=== PATIENT | male | born 1945 | race Caucasian/White ===

== ENCOUNTER 2021-02-08 14:11 | Emergency (ER) | payer MEDICARE, OTHER, SELFPAY ==
[2021-02-08 14:48] VITALS: BP 182/85; PULSE 62; RESP 15; TEMP 36.6; O2SAT 100; BMI 23.3
--- NOTE | 2021-02-08 14:54 | DI.RAD.S_ITS ---
PROCEDURE: XR FINGER LT MIN 2V INDICATIONS: deformed TECHNIQUE: AP hand, 2 views of the 5th finger(s) acquired. COMPARISON: None. FINDINGS: Bones: There is posterior ulnar dislocation at the proximal 5th interphalangeal joint. No definitive fractures. No suspicious bony lesions. Soft tissues: No suspicious soft tissue calcifications. Soft tissue swelling at the base of the 2nd finger. IMPRESSION: Posterior ulnar dislocation of the 5th finger at the proximal interphalangeal joint Dictated by: Agnieszka Fletcher M.D. on 02/08/2021 at 15:49 Approved by: Agnieszka Fletcher M.D. on 02/08/2021 at 15:52
[2021-02-08 16:39] VITALS: BP 141/85; PULSE 75; RESP 16
--- NOTE | 2021-02-08 17:01 | ED_ITS ---
HPI - Extremity Injury (Upper) General Chief Complaint: Extremity Injury, Upper Stated Complaint: LEFT PINKY FINGER FRACTURE Time Seen by Provider: 02/08/21 16:45 Source: patient Mode of arrival: Ambulatory Limitations: no limitations History of Present Illness HPI narrative: Patient complains of left pinky pain/deformity. Patient is left handed. Patient states today he was in the middle moving things in his home. He tripped over a show on the floor. Uncertain how he injured his left pinky. It is deviated laterally. He attempted to place it back in but unable to. No known numbness tingling or weakness. No skin injury to the pinky. He does have small abrasion to the right hopson but does not want to have it looked at. He is up-to-date with his tetanus shot. Review of Systems Review of Systems Narrative: GENERAL: Denies chills, fatigue, malaise, fever, sweats. MUSCULOSKELETAL: Complaints of bony pain NEUROLOGIC: Denies weakness, numbness ROS Unobtainable: All systems reviewed & are unremarkable except as noted in HPI and below Patient History Social History Smoking Status: Never smoker Smoking Status: Never smoker alcohol intake frequency: 0-2 drinks per day Substance Use Type: does not use Exam Narrative Exam Narrative: GENERAL: in no distress, not toxic not dyspneic HEAD: Normocephalic. EXTREMITIES: Examination left hand. There is deformity at 5th digit. At the PIP joint it is deviated all in the ulnar direction skin intact. Light touch intact. Limited range of motion at this joint due to deformity NEURO: AOx4. SKIN: Warm and dry PSYCH: Not anxious, is cooperative Initial Vital Signs Initial Vital Signs: Vital Signs Temperature 97.8 F 02/08/21 14:48 Pulse Rate 62 02/08/21 14:48 Respiratory Rate 15 02/08/21 14:48 Blood Pressure 182/85 H 02/08/21 14:48 Pulse Oximetry 100 02/08/21 14:48 Procedures Orthopedic Joint Reduction Joint #1: Side: left Joint Reduction Location: other (Finger) Analgesia: other (Patient does not want any anesthesia) Technique used: traction/counter-traction Post-reduction vascular: intact Post Reduction X-Ray Obtained: Yes Post Reduction X-Ray Results: reduced Splint Applied: Yes Course Course Course Narrative: No new issues during course of stay. Orders Ordered: ED Orders 02/08/21 14:54 XR finger LT min 2V Stat 02/08/21 17:01 XR finger LT min 2V Stat Reevaluation(s) Reevaluation #1: Patient feels much better after reduction of finger and placed in splint. X-rays reviewed with him he desires discharge home Time: 17:27 Vital Signs Vital signs: Vital Signs - 8 hr 02/08/21 14:48 02/08/21 16:39 Temperature 97.8 F Pulse Rate 62 75 Respiratory Rate 15 16 Blood Pressure 182/85 H 141/85 H Pulse Oximetry 100 MDM - Extremity Injury (Upper) Differential Diagnosis Differential diagnosis: Likely dislocation of finger and other Imaging Data Extremity x-ray #1: Radiologist's Impression: [address] [id number] ReportSigned Patient: Minh Block ZMR#: [id number]: 6Acct:[id number]/Sex: 75 / MDate of Service: 02/08/21Loc: EDAccession Number: [id number] Procedure: XR finger LT min 2V Ordering Provider: Rafa Hughes MD PROCEDURE: XR FINGER LT MIN 2V INDICATIONS: deformed TECHNIQUE: AP hand, 2 views of the 5th finger(s) acquired. COMPARISON: None. FINDINGS: Bones: There is posterior ulnar dislocation at the proximal 5th interphalangeal joint. No definitive fractures. No suspicious bony lesions. Soft tissues: No suspicious soft tissue calcifications. Soft tissue swelling at the base of the 2nd finger. IMPRESSION: Posterior ulnar dislocation of the 5th finger at the proximal interphalangeal joint Dictated by: Agnieszka Fletcher M.D. on 02/08/2021 at 15:49 Approved by: Agnieszka Fletcher M.D. on 02/08/2021 at 15:52 Extremity x-ray #2: Radiologist's Impression: [address] [id number] ReportSigned Patient: Minh Block ZMR#: [id number]: 6Acct:[id number]/Sex: 75 / MDate of Service: 02/08/21Loc: EDAccession Number: [id number] Procedure: XR finger LT min 2V Ordering Provider: Rafa Hughes MD PROCEDURE: XR FINGER LT MIN 2V INDICATIONS: post reduction TECHNIQUE: AP hand, 2 views of the 5th finger(s) acquired. COMPARISON: [facility], , XR FINGER LT MIN 2V, 02/08/2021, 14:55. FINDINGS: Bones: No fractures or dislocations. No suspicious bony lesions. Soft tissues: No suspicious soft tissue calcifications. IMPRESSION: Successful reduction of finger dislocation without fracture. Dictated by: Albert Oglesby M.D. on 02/08/2021 at 17:10 Approved by: Albert Oglesby M.D. on 02/08/2021 at 17:18 MDM Narrative Medical decision making narrative: Appropriate for discharge home. Neurovascular intact. Pain improved. Discharge Plan Departure Patient Disposition: Home Clinical Impression: Dislocation of finger Qualifiers: Encounter type: initial encounter Qualified Code(s): S63.259A - Unspecified dislocation of unspecified finger, initial encounter Instructions: DI for Finger Dislocation, DI for Abrasion Activity Restrictions/Additional Instructions: Return if worse if any questions concerns. Use finger splint for comfort and make appointment for Orthopedics tomorrow for recheck in 1 or 2 weeks. Referrals: Yahaira Farrell MD [Physician] -
== END 2021-02-08 17:45 | disposition home or self-care (01) ==
PROVIDERS: Emergency Provider Emergency Medicine
DX: S63.259A Unspecified dislocation of unspecified finger, initial encounter (principal)
CPT/HCPCS: 26770; 73140; 99283

== ENCOUNTER → 2021-05-26 10:34 | Outpatient (CLI) | payer MEDICARE, OTHER, SELFPAY ==
[2021-05-26 12:02] LABS: Add Manual Diff / Slide Review NO; Basophils Absolute Auto 100 /uL (0-100); Basophils Percent Auto 2.4 % (0-2); Eosinophils Absolute Auto 300 /uL (0-450); Eosinophils Percent Auto 6.3 % (2-4); Hematocrit 44.5 % (41-53); Hemoglobin 14.7 g/dL (13.5-17.5); Lymphocytes Absolute Auto 900 /uL (1100-4500); Lymphocytes Percent Auto 17.6 % (25-40); Mean Corpuscular Hemoglobin 28.2 PG (26-34); Mean Corpuscular Volume 85.5 fL (80-100); Monocytes Absolute Auto 500 /uL (0-900); Monocytes Percent Auto 8.6 % (3-14); Neutrophils Absolute Auto 3500 /uL (1500-7000); Neutrophils Percent Auto 65.1 % (50-75); Platelet Count 226 X10^3/uL (150-400); Red Blood Cell Count 5.21 X10^6/uL (4.5-5.9); White Blood Cell Count 5.4 X10^3/uL (4.5-11.0)
[2021-05-26 12:10] LABS: Alanine Aminotransferase 22 IU/L (<50); Albumin 4.5 g/dL (3.5-5.0); Albumin Globulin Ratio 1.7 (1.0-2.8); Alkaline Phosphatase 84 U/L (38-126); Aspartate Aminotransferase 32 IU/L (17-59); BUN Creatinine Ratio 17.8 (6-22); Blood Urea Nitrogen 21 mg/dL (9-20); Calcium 9.8 mg/dL (8.4-10.2); Carbon Dioxide 28 mmol/L (22-32); Chloride 103 mmol/L (98-107); Cholesterol 146 mg/dL (140-199); Estimated Glomerular Filt Rate > 60.0 mL/min (>60); Globulin 2.7 g/dL (1.7-4.1); Glucose 106 mg/dL (80-110); HDL Cholesterol 53 mg/dL (40-60); HEMOLYSIS < 15 (0-50); LDL Cholesterol Calculated 78 mg/dL (<100); Potassium 4.4 mmol/L (3.4-5.1); Sodium 140 mmol/L (137-145); Total Protein 7.2 g/dL (6.3-8.2); Triglycerides 75 mg/dL (35-150)
[2021-05-26 12:38] LABS: Prostate Specific Antigen Scrn 1.49 ng/mL (0.1-4.0)
== END ==
PROVIDERS: PCP Family Medicine; Referring Provider Family Medicine; Visit Provider Family Medicine
DX: E78.5 Hyperlipidemia, unspecified (principal); I10 Essential (primary) hypertension; Z12.5 Encounter for screening for malignant neoplasm of prostate; N18.9 Chronic kidney disease, unspecified
CPT/HCPCS: 36415; 80053; 80061; 85025; G0103

== ENCOUNTER → 2021-08-21 12:58 | Outpatient (CLI) | payer MEDICARE, OTHER, SELFPAY ==
--- NOTE | 2021-08-21 13:00 | DI.MRI.S_ITS ---
PROCEDURE: MR CERVICAL SPINE WO CON INDICATIONS: assess for stenosis degenerative disc disease TECHNIQUE: Noncontrast sagittal T1 spin echo and T2 fast spin echo, sagittal STIR, foraminal oblique sagittal T2 fast spin echo, and axial gradient echo or T2 fast spin echo through the cervical spine. COMPARISON: None. FINDINGS: Image quality: Excellent. Alignment and Curvature: There is trace C7-T1 anterolisthesis. Bone Marrow: Reactive endplate changes noted adjacent to the C3-C4, C4-C5, C5-C6, C6-C7 and T1-T2 discs. Spinal Cord: Visualized spinal cord has normal size and signal. No cerebellar tonsillar herniation. There is a 0.8 x 1.6 x 1.4 centimeter extramedullary, intradural mass posterior to the spinal cord at the level of the T1 vertebral body. Lesion has decreased signal intensity on all sequences. Lesion causes severe central canal stenosis and marked compression of the spinal cord the level of the T1 vertebral body. Paraspinous Soft Tissues: No paravertebral masses. Prevertebral soft tissues are normal in thickness. C2-C3: Loss of disc signal. Mild, diffuse disc bulge. Mild bilateral facet hypertrophy. No central stenosis. Mild left neural foraminal narrowing. No neural compression. C3-C4: Loss of disc signal and height. Moderate, diffuse disc bulge. Mild ligamentum flavum hypertrophy. Mild bilateral facet hypertrophy. Mild bilateral uncovertebral joint hypertrophy. Severe narrowing of the central canal with mild compression of the cervical spinal cord. Severe bilateral neural foraminal narrowing with compression of the exiting bilateral C4 nerve roots. C4-C5: Loss of disc signal and height. Mild to moderate diffuse disc bulge. Mild bilateral facet hypertrophy. Moderate bilateral uncovertebral joint hypertrophy. Severe narrowing of the central canal with mild compression of the cervical spinal cord. Severe bilateral neural foraminal narrowing with compression of the exiting C5 nerve roots. C5-C6: Loss of disc signal and height. Moderate, diffuse disc bulge. Moderate bilateral facet hypertrophy. Mild bilateral uncovertebral joint hypertrophy. Severe narrowing of the central canal with mild compression of the cervical spinal cord. Severe bilateral neural foraminal narrowing with compression of the exiting C6 nerve roots. C6-C7: Loss of disc signal and height. Moderate, diffuse disc bulge. Mild right moderate left facet hypertrophy. Moderate left uncovertebral joint hypertrophy. Mild narrowing of the central canal. Mild right and severe left neural foraminal narrowing with compression of the exiting left C7 nerve root. C7-T1: Loss of disc signal and height. Moderate, diffuse disc bulge. Mild bilateral facet hypertrophy. Mild narrowing of the central canal. Mild right moderate left neural foraminal narrowing. No neural compression. IMPRESSION: 1. 0.8 x 1.6 x 1.4 centimeter extramedullary, intradural mass at the level of the T1 vertebral body/T1-T2 disc. Mass is causing severe central canal narrowing with marked compression of the upper thoracic spinal cord. Lesion may represent calcified meningioma , however of the MRI cervical spine with contrast is recommended for additional characterization of the lesion. 2. Multilevel degenerative disc disease. 3. Multilevel facet and uncovertebral arthropathy. 4. Severe C3-C4, C4-C5, C5-C6 and T1-T2 central canal narrowing. Five. Severe bilateral C3-C4, C4-C5 and C5-C6 neural foraminal narrowing with compression of the bilateral C4, C5 and C6 nerve roots. Severe left C6-C7 neural foraminal narrowing with compression of the left C7 nerve root. Dictated by: Darlene Gonzalez MD, PhD on 08/23/2021 at 11:13 Approved by: Darlene Gonzalez MD, PhD on 08/23/2021 at 11:43
--- NOTE | 2021-08-21 13:00 | DI.MRI.S_ITS ---
PROCEDURE: MR LUMBAR SPINE WO CON INDICATIONS: assess stenosis DDD TECHNIQUE: Noncontrast sagittal T1 spin echo and T2 fast echo, sagittal STIR, axial T1 and T2 fast spin echo through the lumbar spine. In cases with scoliosis, additional coronal T2 fast spin echo may be performed. COMPARISON: None. FINDINGS: Image quality: Excellent. Alignment and Curvature: There is trace L3-L4 anterolisthesis. Bone Marrow: Reactive endplate changes noted adjacent to the L2-L3, L3-L4, L4-L5 and L5-S1 discs. No acute vertebral body compression fractures. Spinal Cord: Conus medullaris terminates at the T12-L1 disc level. Visualized cord demonstrates normal signal and size. Paraspinous Soft Tissues: No paravertebral masses. T12-L1: Normal appearance. L1-L2: Normal appearance. L2-L3: Loss of disc signal and height. Moderate, diffuse disc bulge. Mild bilateral facet hypertrophy. Mild to moderate narrowing of the central canal. Mild to moderate bilateral neural foraminal narrowing. No neural compression. L3-L4: Loss of disc signal and height. Mild, diffuse disc bulge. Moderate bilateral facet hypertrophy. Moderate narrowing of the central canal. Moderate right and [id number] left neural foraminal narrowing. No neural compression. L4-L5: Loss of disc signal and height. Mild, diffuse disc bulge. Mild right and moderate left facet hypertrophy. Mild narrowing of the central canal. [id number] right and severe left neural foraminal narrowing with compression of the exiting left L4 nerve root. L5-S1: Loss of disc signal. Mild, diffuse disc bulge. Large right central disc extrusion. Extruded disc material extends superiorly along the posterior margin of the L5 vertebral body to a right L5 pedicular level. Extruded disc material compresses the right L5 nerve root. Mild bilateral facet hypertrophy. Mild narrowing of the central canal. Mild bilateral neural foraminal narrowing. IMPRESSION: 1. Multilevel degenerative disc disease. 2. Multilevel facet arthropathy. 3. Large right central L5-S1 disc extrusion which extends superiorly to the level of the right L5 pedicle. Extruded disc material compresses the right L5 nerve root. 4. No severe central canal narrowing. 5. Severe left L4-L5 neural foraminal narrowing with compression of the exiting left L4 nerve root. Dictated by: Darlene Gonzalez MD, PhD on 08/23/2021 at 11:52 Approved by: Darlene Gonzalez MD, PhD on 08/23/2021 at 12:03
== END ==
PROVIDERS: PCP Family Medicine; Referring Provider Family Medicine; Visit Provider Family Medicine
DX: M79.602 Pain in left arm (principal); R20.0 Anesthesia of skin; R29.898 Other symptoms and signs involving the musculoskeletal system; M47.812 Spondylosis without myelopathy or radiculopathy, cervical region; M50.31 Other cervical disc degeneration, high cervical region; M48.02 Spinal stenosis, cervical region; M51.16 Intervertebral disc disorders with radiculopathy, lumbar region; M51.17 Intervertebral disc disorders with radiculopathy, lumbosacral region; M47.26 Other spondylosis with radiculopathy, lumbar region; M47.27 Other spondylosis with radiculopathy, lumbosacral region; M48.061 Spinal stenosis, lumbar region without neurogenic claudication; M25.551 Pain in right hip; G89.29 Other chronic pain
CPT/HCPCS: 72141; 72148

== ENCOUNTER → 2021-08-30 09:46 | Outpatient (CLI) | payer MEDICARE, OTHER, SELFPAY ==
--- NOTE | 2021-08-30 09:47 | DI.MRI.S_ITS ---
PROCEDURE: MR CERVICAL SPINE WO/W CON INDICATIONS: Mass noted on noncontrast MRI of cervical spine TECHNIQUE: Noncontrast sagittal T1 spin echo and T2 fast spin echo, sagittal STIR, foraminal oblique sagittal T2 fast spin echo, axial gradient echo or T2 fast spin echo through the cervical spine. After the administration of contrast, axial and sagittal T1 spin echo with fat saturation through the cervical spine. COMPARISON: [facility], MR, MR CERVICAL SPINE WO CON, 08/21/2021, 13:03. FINDINGS: Image quality: Excellent. As identified on prior exam, there is an approximate 0.9 x 1.5 x 1.4 cm intradural extra medullary mass at the level of T1 to. It is hypointense on T1 and T2. There is severe spinal stenosis at this level. The mass does demonstrate partial contrast enhancement. Remaining appearance of multilevel degenerative changes are stable compared to prior exam. IMPRESSION: 1. Partially enhancing intradural extramedullary mass as described above. Differential diagnosis includes meningioma, neural fibroma and metastatic disease. Given hypointense T2 signal, meningioma is favored. Surgical consult is recommended given degree of spinal stenosis. Dictated by: Tiffanie Jha M.D. on 08/30/2021 at 14:10 Approved by: Tiffanie Jha M.D. on 08/30/2021 at 14:16
== END ==
PROVIDERS: PCP Family Medicine; Referring Provider Family Medicine; Visit Provider Family Medicine
DX: R22.1 Localized swelling, mass and lump, neck (principal); M48.04 Spinal stenosis, thoracic region
CPT/HCPCS: 72156; A9579

== ENCOUNTER → 2021-10-04 09:40 | Outpatient (CLI) | payer MEDICARE, OTHER, SELFPAY ==
--- NOTE | 2021-10-04 | DI.MRI.S_ITS ---
PROCEDURE: MR THORACIC SPINE WO/W CON INDICATIONS: Neoplasm of unspecified behavior of bone, soft tis TECHNIQUE: Noncontrast sagittal T1 spin echo and T2 fast spin echo, sagittal STIR, axial T1 and T2 fast spin echo through the thoracic spine. After the administration of contrast, axial and sagittal T1 spin echo with fat saturation through the thoracic spine. COMPARISON: [facility], MR, MR CERVICAL SPINE WO/W CON, 08/30/2021, 10:07. [facility], MR, MR CERVICAL SPINE WO CON, 08/21/2021, 13:03. FINDINGS: Image quality: Excellent. Alignment and curvature: There is normal bony alignment. Marrow: Marrow is of normal overall signal. No acute vertebral body compression fractures. Spinal cord: Visualized spinal cord is of normal signal and size, without abnormal enhancement. Paraspinous soft tissues: No paravertebral masses or abnormal enhancement. Miscellaneous: 0.9 x 1.5 x 1.4 centimeter partially enhancing intradural, extramedullary mass posterior to the spinal cord at the level of the T1 vertebral body is stable in size and contour compared to August 30, 2021. Lesion continues to cause severe central canal stenosis with marked compression of the upper thoracic spinal cord. Loss of disc signal and height noted throughout the thoracic spine. Mild facet hypertrophy noted throughout the cervical spine. Diffuse disc bulge and multiple disc protrusions noted throughout thoracic thoracic spine which causes multilevel mild central canal narrowing. There is a large T10-T11 central disc extrusion. Extruded disc material causes moderate narrowing of the central canal and abuts the anterior margin of the lower thoracic spinal cord without significant mass effect on the spinal cord. IMPRESSION: 1. Partially enhancing 0.9 x 1.5 x 1.4 centimeter intradural, extramedullary mass the level of the T1 vertebral body which is stable in appearance compared to prior cervical spine MRI obtained August 30, 2021. Differential diagnosis includes meningioma, neurofibroma and metastatic lesion. Lesion is causing severe central canal stenosis with marked compression of the upper thoracic spinal cord. 2. Multilevel degenerative disc disease and facet arthropathy. 3. Large central T11-T12 disc protrusion which causes moderate central canal narrowing. Dictated by: Darlene Gonzalez MD, PhD on 10/04/2021 at 15:40 Approved by: Darlene Gonzalez MD, PhD on 10/04/2021 at 15:49
--- NOTE | 2021-10-04 | DI.MRI.S_ITS ---
PROCEDURE: MR HEAD/BRAIN WO/W CON INDICATIONS: SPINAL TUMOR TECHNIQUE: Noncontrast axial T1 spin echo, axial T2 fast spin echo, sagittal and axial FLAIR, coronal T2 fast spin echo, axial gradient echo, axial diffusion and ADC through the brain. After the administration of contrast, axial and coronal T1 spin echo with fat saturation through the brain. COMPARISON: [facility], MR, MR CERVICAL SPINE WO/W CON, 08/30/2021, 10:07. [facility], MR, MR THORACIC SPINE WO/W CON, 10/04/2021, 10:07. FINDINGS: Image quality: Excellent. CSF spaces: Basal cisterns are patent. No extra-axial fluid collections. Ventricles are normal in size and shape. Brain: Resection change can be seen involving the left inferolateral cerebellum, with volume loss and encephalomalacia. No recurrent masses can be seen at this site. No midline shift. No intracranial bleeds or masses. No abnormal intracranial enhancement. There is cerebral volume loss for age. There is periventricular white matter chronic small vessel ischemic change. The brainstem appears normal. Diffusion-weighted images demonstrate no acute ischemic insults. Normal intravascular flow voids are present. Skull and face: Left suboccipital craniectomy change can be seen. Calvarial marrow is normal in signal. Orbits appear normal. Sinuses: Sinuses and mastoids appear clear. IMPRESSION: Within the left inferolateral cerebellum, there is focal resection change seen. No recurrent masses can be seen at this site. No masses or abnormal enhancement can be seen elsewhere. Dictated by: Timoteo Manley M.D. on 10/04/2021 at 11:03 Approved by: Timoteo Manley M.D. on 10/04/2021 at 11:05
== END ==
PROVIDERS: PCP Family Medicine; Referring Provider Family Medicine; Visit Provider Family Medicine
DX: D49.7 Neoplasm of unspecified behavior of endocrine glands and other parts of nervous system (principal); G93.89 Other specified disorders of brain; M48.04 Spinal stenosis, thoracic region; M51.24 Other intervertebral disc displacement, thoracic region
CPT/HCPCS: 70553; 72157; A9579

== ENCOUNTER → 2022-01-06 14:08 | Outpatient (CLI) | payer MEDICARE, OTHER, SELFPAY ==
--- NOTE | 2022-01-06 | DI.RAD.S_ITS ---
PROCEDURE: XR CERVICAL SPINE 2V OR 3V INDICATIONS: . TECHNIQUE: 3 view(s) of the cervical spine were acquired. COMPARISON: None. FINDINGS: Bones: No fractures or dislocations to the C7-T1 level. The lateral masses of C1 appear intact on the odontoid view. No suspicious bony lesions. Posterior fixation at C7-T2 is redemonstrated. No hardware fracture. Severe degenerative changes are present within the lower cervical spine including intervertebral disc space narrowing, endplate sclerosis, osteophytosis, and limbus vertebral bodies. Soft tissues: No prevertebral soft tissue swelling. IMPRESSION: Severe degenerative change of the lower cervical spine. Dictated by: Keri Monge M.D. on 01/06/2022 at 17:48 Approved by: Keri Monge M.D. on 01/06/2022 at 17:49
--- NOTE | 2022-01-06 | DI.RAD.S_ITS ---
PROCEDURE: XR THORACIC SPINE 2V INDICATIONS: . TECHNIQUE: 3 views of the thoracic spine were acquired. COMPARISON: None. FINDINGS: Bones: No fractures or dislocations. No suspicious bony lesions. 12 pairs of ribs are noted, and appear intact where visualized. There is diffuse moderate intervertebral disc space narrowing and osteophytosis in the mid thoracic spine. Soft tissues: No paravertebral stripe thickening. IMPRESSION: Moderate degenerative change. Dictated by: Keri Monge M.D. on 01/06/2022 at 17:49 Approved by: Keri Monge M.D. on 01/06/2022 at 17:50
== END ==
PROVIDERS: PCP Family Medicine; Referring Provider Physician Assistant; Visit Provider Physician Assistant
DX: M47.812 Spondylosis without myelopathy or radiculopathy, cervical region; M47.814 Spondylosis without myelopathy or radiculopathy, thoracic region; Z98.1 Arthrodesis status
CPT/HCPCS: 72040; 72072

== ENCOUNTER → 2023-12-22 09:10 | Outpatient (CLI) | payer MEDICARE, OTHER, SELFPAY ==
[2023-12-22 10:11] LABS: Add Manual Diff / Slide Review NO; Basophils Absolute Auto 100 /uL (0-100); Basophils Percent Auto 1.2 % (0-2); Eosinophils Absolute Auto 300 /uL (0-450); Hematocrit 37.8 % (41-53); Hemoglobin 12.8 g/dL (13.5-17.5); Lymphocytes Absolute Auto 900 /uL (1100-4500); Lymphocytes Percent Auto 13.9 % (25-40); Mean Corpuscular Hemoglobin 29.3 PG (26-34); Mean Corpuscular Volume 86.1 fL (80-100); Monocytes Absolute Auto 500 /uL (0-900); Monocytes Percent Auto 7.5 % (3-14); Neutrophils Absolute Auto 4500 /uL (1500-7000); Neutrophils Percent Auto 72.4 % (50-75); Platelet Count 226 X10^3/uL (150-400); Red Blood Cell Count 4.39 X10^6/uL (4.5-5.9); Red Cell Distribution Width 13.9 % (11.6-14.8); White Blood Cell Count 6.3 X10^3/uL (4.5-11.0)
[2023-12-22 10:20] LABS: Hemoglobin A1C% w Est Avg Glu 5.6 % (4.0-6.0)
[2023-12-22 10:36] LABS: Alanine Aminotransferase 21 IU/L (<50); Albumin 4.2 g/dL (3.5-5.0); Albumin Globulin Ratio 1.8 (1.0-2.8); Alkaline Phosphatase 85 U/L (38-126); Aspartate Aminotransferase 26 IU/L (17-59); BUN Creatinine Ratio 26.8 (6-22); Bilirubin Total 0.7 mg/dL (0.2-1.3); Blood Urea Nitrogen 34 mg/dL (9-20); Calcium 9.2 mg/dL (8.4-10.2); Carbon Dioxide 27 mmol/L (22-32); Chloride 102 mmol/L (98-107); Estimated Glomerular Filt Rate 58 mL/min (>60); Globulin 2.3 g/dL (1.7-4.1); Glucose 105 mg/dL (80-110); HEMOLYSIS < 15 (0-50); Potassium 4.5 mmol/L (3.4-5.1); Sodium 137 mmol/L (137-145); Total Protein 6.5 g/dL (6.3-8.2)
== END ==
LOC: LAB 09:14
PROVIDERS: PCP Family Medicine; Referring Provider Registered Nurse; Visit Provider Registered Nurse
DX: K21.9 Gastro-esophageal reflux disease without esophagitis (principal); R73.03 Prediabetes; I10 Essential (primary) hypertension; N18.31 Chronic kidney disease, stage 3a
CPT/HCPCS: 36415; 80053; 83036; 85025

== ENCOUNTER → 2024-05-01 14:54 | Outpatient (CLI) | payer MEDICARE, OTHER, SELFPAY ==
[2024-05-01 17:33] LABS: Alanine Aminotransferase 20 IU/L (<50); Albumin 4.1 g/dL (3.5-5.0); Albumin Globulin Ratio 2.2 (1.0-2.8); Alkaline Phosphatase 85 U/L (38-126); Aspartate Aminotransferase 27 IU/L (17-59); BUN Creatinine Ratio 15.5 (6-22); Bilirubin Total 1.1 mg/dL (0.2-1.3); Blood Urea Nitrogen 20 mg/dL (9-20); Calcium 8.8 mg/dL (8.4-10.2); Carbon Dioxide 27 mmol/L (22-32); Chloride 102 mmol/L (98-107); Estimated Glomerular Filt Rate 57 mL/min (>60); Globulin 1.9 g/dL (1.7-4.1); Glucose 85 mg/dL (80-110); HEMOLYSIS < 15 (0-50); Potassium 4.3 mmol/L (3.4-5.1); Sodium 135 mmol/L (137-145)
== END ==
DX: Z12.11 Encounter for screening for malignant neoplasm of colon (principal)
CPT/HCPCS: 36415; 80053

== ENCOUNTER → 2024-05-09 15:00 | Outpatient (CLI) | payer MEDICARE, OTHER, SELFPAY | DX: Z12.11 Encounter for screening for malignant neoplasm of colon (principal) | CPT/HCPCS: 82274 ==

== ENCOUNTER → 2024-05-14 10:13 | Outpatient (CLI) | payer MEDICARE, OTHER, SELFPAY ==
[2024-05-14 11:51] LABS: Appearance Urine UA CLEAR; Bilirubin Urine UA NEGATIVE (NEGATIVE); Color Urine UA YELLOW; Glucose Urine UA NEGATIVE (Negative); Ketones Urine UA NEGATIVE (NEGATIVE); Leukocyte Esterase Urine UA NEGATIVE (NEGATIVE); Nitrite Urine UA NEGATIVE (Negative); Occult Blood Urine UA NEGATIVE (Negative); Protein Urine UA NEGATIVE (Negative); Specific Gravity Urine UA 1.025 (1.000-1.035); Urobilinogen Urine UA 0.2 E.U./dL (0.2); pH Urine UA 5.5 (4.5-8.0)
[2024-05-14 12:29] LABS: Bacteria Urine None Seen; Culture Indicated Urine Cult Not Indicated; RBC Urine 0-1/HPF (0-5/HPF); Squamous Epithelial Cell Urine 0-1 /HPF (0-5/HPF); Urine Volume 10mL (spun); WBC Urine 0-1/HPF (0-5/HPF)
[2024-05-14 12:32] LABS: Add Manual Diff / Slide Review NO; Basophils Absolute Auto 100 /uL (0-100); Basophils Percent Auto 1.5 % (0-2); Eosinophils Absolute Auto 300 /uL (0-450); Eosinophils Percent Auto 5.6 % (2-4); Hematocrit 38.3 % (41-53); Lymphocytes Absolute Auto 1000 /uL (1100-4500); Lymphocytes Percent Auto 18.8 % (25-40); Mean Corpuscular Hemoglobin 29.3 PG (26-34); Mean Corpuscular Volume 86.4 fL (80-100); Monocytes Absolute Auto 500 /uL (0-900); Monocytes Percent Auto 8.6 % (3-14); Neutrophils Absolute Auto 3600 /uL (1500-7000); Neutrophils Percent Auto 65.5 % (50-75); Platelet Count 246 X10^3/uL (150-400); Red Blood Cell Count 4.43 X10^6/uL (4.5-5.9); Red Cell Distribution Width 13.8 % (11.6-14.8); White Blood Cell Count 5.6 X10^3/uL (4.5-11.0)
== END ==
LOC: LAB 10:21
PROVIDERS: Referring Provider Physician Assistant Medical; Visit Provider Physician Assistant Medical
DX: N18.30 Chronic kidney disease, stage 3 unspecified (principal); K21.9 Gastro-esophageal reflux disease without esophagitis; I10 Essential (primary) hypertension; R73.03 Prediabetes
CPT/HCPCS: 36415; 81001; 85025

== ENCOUNTER → 2024-05-17 14:24 | Outpatient (CLI) | payer MEDICARE, OTHER, SELFPAY ==
[2024-05-17 15:42] LABS: Add Manual Diff / Slide Review NO; Basophils Absolute Auto 100 /uL (0-100); Basophils Percent Auto 1.2 % (0-2); Eosinophils Absolute Auto 300 /uL (0-450); Eosinophils Percent Auto 3.5 % (2-4); Hematocrit 37.7 % (41-53); Hemoglobin 12.7 g/dL (13.5-17.5); Lymphocytes Absolute Auto 900 /uL (1100-4500); Lymphocytes Percent Auto 10.9 % (25-40); Mean Corpuscular HGB Conc 33.8 % (30-36); Mean Corpuscular Hemoglobin 29.1 PG (26-34); Mean Corpuscular Volume 86.2 fL (80-100); Monocytes Absolute Auto 500 /uL (0-900); Monocytes Percent Auto 5.8 % (3-14); Neutrophils Absolute Auto 6300 /uL (1500-7000); Neutrophils Percent Auto 78.6 % (50-75); Platelet Count 254 X10^3/uL (150-400); Red Blood Cell Count 4.38 X10^6/uL (4.5-5.9); Red Cell Distribution Width 13.6 % (11.6-14.8)
[2024-05-17 15:57] LABS: HEMOLYSIS < 15 (0-50); Iron 68 ug/dL (49-181)
[2024-05-17 16:07] LABS: Percent Iron Saturation 25 % (20-50); Total Iron Binding Capacity 276 ug/dL (261-462); Transferrin 228 mg/dL (206-381)
== END ==
LOC: LAB 14:29
DX: D64.9 Anemia, unspecified (principal)
CPT/HCPCS: 36415; 83540; 83550; 85025; 85045

== ENCOUNTER → 2024-12-20 15:28 | Outpatient (CLI) | payer MEDICARE, OTHER, SELFPAY ==
[2024-12-20 16:49] LABS: Blood Urea Nitrogen 38 mg/dL (9-20); Estimated Glomerular Filt Rate 55 mL/min (>60)
== END ==
LOC: LAB 15:30
PROVIDERS: Referring Provider Psychiatry & Neurology Neurology; Visit Provider Psychiatry & Neurology Neurology
DX: Z51.81 Encounter for therapeutic drug level monitoring (principal)
CPT/HCPCS: 36415; 82565; 84520

== ENCOUNTER → 2025-01-10 18:50 | Outpatient (CLI) | payer MEDICARE, OTHER, SELFPAY ==
--- NOTE | 2025-01-10 18:55 | DI.MRI.S_ITS ---
PROCEDURE: MR THORACIC SPINE WO/W CON INDICATIONS: PARESTESIAS,MYELOPATHY,TUMOR TECHNIQUE: Noncontrast sagittal T1 spin echo and T2 fast spin echo, sagittal STIR, axial T1 and T2 fast spin echo through the thoracic spine. After the administration of contrast, axial and sagittal T1 spin echo with fat saturation through the thoracic spine. COMPARISON: [facility], MR, MR CERVICAL SPINE WO/W CON, 01/10/2025, 19:13. [facility], MR, MR LUMBAR SPINE WO/W CON, 01/10/2025, 19:13. [facility], MR, MR THORACIC SPINE WO/W CON, 10/04/2021, 10:07. FINDINGS: Image quality: Excellent. Alignment and curvature: There is normal bony alignment. Posterior fusion is present at C7 through T2. Marrow: Marrow is of normal overall signal. No acute vertebral body compression fractures. Spinal cord: Visualized spinal cord is of normal signal and size, without abnormal enhancement. Previous focus intradural extramedullary enhancement at the level of T1 is no longer visualized. There has been interval fusion. Prominent susceptibility artifact is present. Paraspinous soft tissues: No paravertebral masses or abnormal enhancement. Miscellaneous: Multilevel disc desiccation is present. Trace disc bulge at T3-4, T4-5, T5-6, T6-7, T7-8, T8-9,, T9-10. Posterior central protrusion at T10-11 is present appearing slightly decreased in size compared to prior exam. There remains slight effacement of the anterior thecal sac and cord, minimally less prominent. IMPRESSION: Scattered degenerative changes. Nonvisualization of previously identified intradural extramedullary enhancing mass at T1 secondary to interval fusion and susceptibility artifact. Dictated by: Tiffanie Jha M.D. on 01/13/2025 at 13:15 Approved by: Tiffanie Jha M.D. on 01/13/2025 at 14:30
--- NOTE | 2025-01-10 18:55 | DI.MRI.S_ITS ---
PROCEDURE: MR CERVICAL SPINE WO/W CON INDICATIONS: PARESTESIAS,MYELOPATHY,TUMOR TECHNIQUE: Noncontrast sagittal T1 spin echo and T2 fast spin echo, sagittal STIR, foraminal oblique sagittal T2 fast spin echo, axial gradient echo or T2 fast spin echo through the cervical spine. After the administration of contrast, axial and sagittal T1 spin echo with fat saturation through the cervical spine. COMPARISON: MR, MR CERVICAL SPINE WO CON, 08/21/2021, 13:03. [facility], MR, MR CERVICAL SPINE WO/W CON, 08/30/2021, 10:07. FINDINGS: Image quality: Excellent. Alignment and curvature: There is trace retrolisthesis of C3 on C4, C4 on C5, C5 on C6,, trace anterolisthesis of C7 on T1, T1 on T2 T3 on T4. Posterior fusion is present from C7 through T2. Marrow: Marrow is normal in overall signal, without suspicious enhancement. Spinal cord: Visualized spinal cord has normal size. Previous area of enhancement is no longer visualized. There is significant susceptibility artifact from C7-T2 with interval fusion.. No cerebellar tonsillar herniation. No abnormal intramedullary enhancement. Paraspinous soft tissues: No paravertebral masses or suspicious enhancement. Discs: Multilevel moderate to severe disc desiccation. C2-3: Mild disc bulge with mild left foraminal narrowing. Uncovertebral hypertrophy. No interval change. C3-4: Mild disc bulge with moderate to severe spinal stenosis. Severe bilateral foraminal narrowing with uncovertebral hypertrophy, unchanged. Mild compression of exiting C4 nerve roots, unchanged. C4-5: Mild disc bulge with moderate to severe spinal stenosis. Severe bilateral foraminal narrowing with uncovertebral hypertrophy. No interval change. Mild compression of exiting C5 nerve roots, unchanged. C5-6: Mild disc bulge with moderate spinal stenosis. Severe bilateral foraminal narrowing compression of the exiting nerve roots of uncovertebral hypertrophy, unchanged. C6-7: Mild disc bulge with mild spinal stenosis. Mild right and severe left foraminal narrowing with mild compression of the exiting left C7 nerve root. No interval change. C7-T1: Mild disc bulge with mild spinal stenosis. Mild right and moderate left foraminal narrowing with uncovertebral hypertrophy. No interval change. IMPRESSION: Degenerative changes, stable. Area of previous enhancement at T1 is no longer visualized. There is prominent susceptibility artifact from interval fusion hardware. Dictated by: Tiffanie Jha M.D. on 01/13/2025 at 14:31 Approved by: Tiffanie Jha M.D. on 01/13/2025 at 15:23
--- NOTE | 2025-01-10 18:55 | DI.MRI.S_ITS ---
PROCEDURE: MR LUMBAR SPINE WO/W CON INDICATIONS: PARESTESIAS,MYELOPATHY,TUMOR TECHNIQUE: Noncontrast sagittal T1 spin echo and T2 fast spin echo, sagittal STIR, axial T1 and T2 fast spin echo through the lumbar spine. In cases with scoliosis, additional coronal T2 fast spin echo may be performed. After the administration of contrast, sagittal and axial T1 spin echo with fat saturation through the lumbar spine. COMPARISON: [facility], , MR LUMBAR SPINE WO CON, 08/21/2021, 13:28. FINDINGS: Image quality: Excellent. Alignment and curvature: There is trace anterolisthesis of L3 on L4. Marrow: Marrow is of normal overall signal. Mild reactive endplate changes are at L4-5, minimal L2-3, L3-4, L5-S1. No acute vertebral body compression fractures. No suspicious marrow enhancement. Spinal cord: Conus medullaris terminates at the L1 level. Visualized spinal cord demonstrates normal signal, without suspicious enhancement. Paraspinous soft tissues: No paravertebral masses or abnormal enhancement. Discs: Multilevel moderate to severe disc desiccation most prominent from L2-3 through L4-5. T12-L1: No disc bulge, spinal stenosis or foraminal narrowing. No interval change. L1-L2: No disc bulge, spinal stenosis or foraminal narrowing. No interval change. L2-L3: Mild disc bulge with [id number]-[id number] spinal stenosis.. Moderate bilateral, right greater than left foraminal narrowing slightly progressive compared to prior exam. Facet and ligamentum flavum hypertrophy are present. L3-L4: Mild disc bulge with moderate to severe spinal stenosis, progressive. Epidural lipomatosis is present. Severe right and moderate left foraminal narrowing with facet and ligamentum flavum hypertrophy. Overall appearance is progressive. Slight effacement of the L3 right exiting nerve root. L4-L5: Mild disc bulge with mild spinal stenosis. Severe left and [id number] right foraminal narrowing with compression of the exiting left L4 nerve root, unchanged. L5-S1: Mild disc bulge without spinal stenosis. Previous extrusion is no longer visualized. Moderate to severe right and moderate left foraminal narrowing with facet and ligamentum flavum hypertrophy, progressive. IMPRESSION: Multilevel degenerative changes, with areas of progression as above. Multilevel prominent foraminal narrowing most severe at L3-4 and L4-5 secondary to facet/ligamentum flavum arthropathy. Dictated by: Tiffanie Jha M.D. on 01/13/2025 at 16:39 Approved by: Tiffanie Jha M.D. on 01/13/2025 at 16:44
== END ==
PROVIDERS: PCP Student in an Organized Health Care Education/Training Program; Referring Provider Psychiatry & Neurology Neurology; Visit Provider Psychiatry & Neurology Neurology
DX: R20.2 Paresthesia of skin (principal); G95.9 Disease of spinal cord, unspecified; D49.2 Neoplasm of unspecified behavior of bone, soft tissue, and skin; M47.812 Spondylosis without myelopathy or radiculopathy, cervical region; M48.02 Spinal stenosis, cervical region; M50.31 Other cervical disc degeneration, high cervical region; M47.814 Spondylosis without myelopathy or radiculopathy, thoracic region; M51.24 Other intervertebral disc displacement, thoracic region; M47.816 Spondylosis without myelopathy or radiculopathy, lumbar region; M47.817 Spondylosis without myelopathy or radiculopathy, lumbosacral region; M48.061 Spinal stenosis, lumbar region without neurogenic claudication; M48.07 Spinal stenosis, lumbosacral region; Z98.1 Arthrodesis status
CPT/HCPCS: 72156; 72157; 72158; A9579

== ENCOUNTER → 2025-01-28 16:20 | Outpatient (CLI) | payer MEDICARE, OTHER, SELFPAY ==
--- NOTE | 2025-01-28 16:23 | DI.RAD.S_ITS ---
PROCEDURE: XR HAND LT MIN 3V INDICATIONS: Dog bite left hand TECHNIQUE: 3 views of the hand(s) acquired. COMPARISON: None. FINDINGS: Bones: No fractures or dislocations. Carpal bones are normally aligned. No suspicious bony lesions. Soft tissues: No suspicious soft tissue calcifications. No evidence of radiodense foreign body. IMPRESSION: No acute bony abnormality or radiodense foreign body. Dictated by: Raad Coronel M.D. on 01/29/2025 at 14:47 Approved by: Raad Coronel M.D. on 01/29/2025 at 14:48
== END ==
PROVIDERS: PCP Student in an Organized Health Care Education/Training Program; Referring Provider Nurse Practitioner Family; Visit Provider Nurse Practitioner Family
DX: S61.452A Open bite of left hand, initial encounter (principal); W54.0XXA Bitten by dog, initial encounter
CPT/HCPCS: 73130

== ENCOUNTER → 2025-02-03 18:40 | Outpatient (CLI) | payer MEDICARE, OTHER, SELFPAY ==
--- NOTE | 2025-02-03 | DI.MRI.S_ITS ---
PROCEDURE: MR SHOULDER RT WO CON INDICATIONS: sHOULDER PAIN - right TECHNIQUE: Noncontrast oblique coronal T2 fast spin echo with fat saturation, oblique sagittal T1 spin echo and T2 fast spin echo with fat saturation, axial T1 spin echo and T2 fast spin echo with fat saturation through the shoulder. COMPARISON: [facility], CR, XR SHOULDER 2+ VIEWS BILATERAL, 06/20/2024, 15:46. [facility], MR, MR SHOULDER LT WO CON, 02/03/2025, 18:46. FINDINGS: Image quality: Excellent. Rotator cuff: Moderate grade articular and bursal surface partial thickness tear involving anterior to mid fibers of distal supraspinatus at its insertion on humeral head extending to musculotendinous junction. Low-grade articular surface partial-thickness tear involving distal infraspinatus at its insertion on the humeral head. Low-grade intrasubstance partial-thickness tear involving distal subscapularis. No full-thickness rotator cuff tendon rupture. Sagittal images demonstrate mild supraspinatus muscle atrophy. Bones and bursae: There is severe glenohumeral joint osteoarthritis and moderate acromioclavicular joint osteoarthritis. No fracture or dislocation. Moderate joint effusion and subacromial subdeltoid bursal fluid is seen, no definite loose bodies. Type 2 acromion, no os acromiale. Capsule and soft tissues: Global signal abnormality and fraying throughout right glenoid labrum suggestive of extensive right glenoid labral tear. The long head of the biceps tendon appears thickened with intrasubstance T2 hyperintense signal. IMPRESSION: 1. Severe glenohumeral joint osteoarthritis and moderate acromioclavicular joint osteoarthritis. No acute fracture or dislocation. Moderate joint effusion and subacromial subdeltoid bursal fluid, no gross loose bodies. 2. Moderate grade articular and bursal surface partial thickness tear involving distal supraspinatus extending to musculotendinous junction. Low-grade articular surface partial-thickness tear involving distal infraspinatus. Low-grade intrasubstance partial-thickness tear involving distal subscapularis. No full-thickness rotator cuff tendon rupture. Mild supraspinatus muscle atrophy. 3. Global signal abnormality throughout right glenoid labrum suggestive of extensive labral tear. 4. Low to moderate grade intrasubstance partial-thickness tear involving proximal intra-articular portion of long head of biceps. Dictated by: Jarocho Santiago M.D. on 02/04/2025 at 13:25 Approved by: Jarocho Santiago M.D. on 02/04/2025 at 13:29
--- NOTE | 2025-02-03 18:43 | DI.MRI.S_ITS ---
PROCEDURE: MR SHOULDER LT WO CON INDICATIONS: CHRONIC PAIN OF BOTH SHOUDLERS TECHNIQUE: Noncontrast oblique coronal T2 fast spin echo with fat saturation, oblique sagittal T1 spin echo and T2 fast spin echo with fat saturation, axial T1 spin echo and T2 fast spin echo with fat saturation through the shoulder. COMPARISON: None. FINDINGS: Image quality: Excellent. Rotator cuff: Low to moderate grade articular surface partial-thickness tear involving distal supraspinatus at its insertion on humeral head is seen extending to musculotendinous junction. Distal infraspinatus and subscapularis tendinosis is seen. No full-thickness rotator cuff tendon rupture. Sagittal images demonstrate no significant rotator cuff muscle atrophy. Bones and bursae: No bone marrow contusions or fractures . Nonspecific subcortical cystic changes are noted involving inferior and posterior glenoid. Mild to moderate acromioclavicular joint osteoarthritic changes are seen with joint space narrowing and downward osteophyte formation depressing the musculotendinous junction of supraspinatus. Type 2 acromion without an os acromiale. Small amount of subacromial subdeltoid bursal fluid, no loose bodies. Capsule and soft tissues: Fraying of superior anterior glenoid labrum with T2 hyperintense signal consistent with superior anterior glenoid labral tear. Similar signal abnormality and fraying involving inferior posterior glenoid labrum is also seen. Tendinosis and low-grade partial-thickness tear involving proximal intra-articular portion of long head of biceps is seen. IMPRESSION: 1. Low to moderate grade articular surface partial-thickness tear involving distal supraspinatus extending to musculotendinous junction. Distal infraspinatus and subscapularis tendinosis. No full-thickness rotator cuff tendon rupture. No significant rotator cuff muscle atrophy. 2. [id number] acromioclavicular joint osteoarthritis. No fracture or dislocation. Subcortical cystic changes involving inferior and posterior glenoid. Small subacromial subdeltoid bursal fluid, no loose bodies. 3. Finding is suggestive of subtle superior anterior glenoid labral tear and inferior posterior glenoid labral tear. 4. Low-grade intrasubstance partial-thickness tear involving proximal long head of biceps. Dictated by: Jarocho Santiago M.D. on 02/04/2025 at 13:16 Approved by: Jarocho Santiago M.D. on 02/04/2025 at 13:24
== END ==
PROVIDERS: PCP Student in an Organized Health Care Education/Training Program; Referring Provider Student in an Organized Health Care Education/Training Program; Visit Provider Orthopaedic Surgery
DX: M75.112 Incomplete rotator cuff tear or rupture of left shoulder, not specified as traumatic (principal); M75.111 Incomplete rotator cuff tear or rupture of right shoulder, not specified as traumatic; M19.012 Primary osteoarthritis, left shoulder; M19.011 Primary osteoarthritis, right shoulder; S46.112A Strain of muscle, fascia and tendon of long head of biceps, left arm, initial encounter; S46.111A Strain of muscle, fascia and tendon of long head of biceps, right arm, initial encounter; M25.511 Pain in right shoulder; M25.512 Pain in left shoulder; G89.29 Other chronic pain
CPT/HCPCS: 73221

== ENCOUNTER → 2025-03-21 07:07 | Outpatient (CLI) | payer MEDICARE, OTHER, SELFPAY ==
[2025-03-21 08:10] LABS: Creatinine Urine Random 123.46 mg/dL
[2025-03-21 08:19] LABS: Protein (Total) Urine Random < 5 mg/dL (0-12); Protein Creatinine Ratio Urine 0.04 GRAM/24H
[2025-03-21 08:20] LABS: Add Manual Diff / Slide Review NO; Basophils Absolute Auto 100 /uL (0-100); Basophils Percent Auto 1.5 % (0-2); Eosinophils Absolute Auto 300 /uL (0-450); Eosinophils Percent Auto 6.1 % (2-4); Hematocrit 40.1 % (41-53); Hemoglobin 13.3 g/dL (13.5-17.5); Lymphocytes Absolute Auto 1100 /uL (1100-4500); Lymphocytes Percent Auto 21.3 % (25-40); Mean Corpuscular HGB Conc 33.2 % (30-36); Mean Corpuscular Hemoglobin 28.9 PG (26-34); Monocytes Absolute Auto 500 /uL (0-900); Monocytes Percent Auto 8.7 % (3-14); Neutrophils Absolute Auto 3300 /uL (1500-7000); Neutrophils Percent Auto 62.4 % (50-75); Platelet Count 233 X10^3/uL (150-400); Red Blood Cell Count 4.61 X10^6/uL (4.5-5.9); Red Cell Distribution Width 13.5 % (11.6-14.8); White Blood Cell Count 5.4 X10^3/uL (4.5-11.0)
[2025-03-21 08:30] LABS: Hemoglobin A1C% w Est Avg Glu 5.3 % (4.0-6.0)
[2025-03-21 09:02] LABS: Iron 63 ug/dL (49-181)
[2025-03-21 09:04] LABS: Alanine Aminotransferase 23 IU/L (<50); Albumin 4.4 g/dL (3.5-5.0); Albumin Globulin Ratio 2.3 (1.0-2.8); Alkaline Phosphatase 98 U/L (38-126); Aspartate Aminotransferase 33 IU/L (17-59); BUN Creatinine Ratio 21.5 (6-22); Bilirubin Total 0.8 mg/dL (0.2-1.3); Blood Urea Nitrogen 28 mg/dL (9-20); Calcium 9.2 mg/dL (8.4-10.2); Carbon Dioxide 26 mmol/L (22-32); Chloride 100 mmol/L (98-107); Cholesterol 118 mg/dL (140-199); Estimated Glomerular Filt Rate 56 mL/min (>60); Globulin 1.9 g/dL (1.7-4.1); Glucose 102 mg/dL (70-99); HDL Cholesterol 44 mg/dL (40-60); HEMOLYSIS < 15 (0-50); LDL Cholesterol Calculated 60 mg/dL (<100); Potassium 4.4 mmol/L (3.4-5.1); Sodium 134 mmol/L (137-145); Total Protein 6.3 g/dL (6.3-8.2); Triglycerides 69 mg/dL (35-150)
[2025-03-21 10:26] LABS: Folate 10.9 ng/mL (2.76-20.0); Vitamin B12 922 pg/mL (239-931)
== END ==
PROVIDERS: PCP Student in an Organized Health Care Education/Training Program; Referring Provider Student in an Organized Health Care Education/Training Program; Visit Provider Student in an Organized Health Care Education/Training Program
DX: N18.31 Chronic kidney disease, stage 3a (principal); R73.9 Hyperglycemia, unspecified; D64.9 Anemia, unspecified; E78.5 Hyperlipidemia, unspecified
CPT/HCPCS: 36415; 80053; 80061; 82570; 82607; 82746; 83036; 83540; 84156; 85025

== ENCOUNTER → 2025-10-03 07:04 | Outpatient (CLI) | payer MEDICARE, OTHER, SELFPAY ==
[2025-10-03 08:31] LABS: Albumin 4.4 g/dL (3.5-5.0); Blood Urea Nitrogen 26 mg/dL (9-20); Calcium 9.4 mg/dL (8.4-10.2); Carbon Dioxide 26 mmol/L (22-32); Chloride 101 mmol/L (98-107); Estimated Glomerular Filt Rate 60 mL/min (>60); Glucose 102 mg/dL (70-99); HEMOLYSIS < 15 (0-50); Phosphorous 4.8 mg/dL (2.3-3.7); Potassium 4.7 mmol/L (3.4-5.1); Sodium 136 mmol/L (137-145)
== END ==
PROVIDERS: PCP Student in an Organized Health Care Education/Training Program; Referring Provider Student in an Organized Health Care Education/Training Program; Visit Provider Student in an Organized Health Care Education/Training Program
DX: D64.9 Anemia, unspecified (principal); I12.9 Hypertensive chronic kidney disease with stage 1 through stage 4 chronic kidney disease, or unspecified chronic kidney disease; N18.31 Chronic kidney disease, stage 3a
CPT/HCPCS: 36415; 80069